=== PATIENT | male | born 1935 | race Two or more races ===

== ENCOUNTER 2023-04-11 09:20 | Emergency (ER) | payer OTHER ==
[~2023-04-11] VITALS: Ht 167.6 cm; Wt 72.7 kg
[~2023-04-11 09:20] MED LIST: ALPR0.254 PO; AMLO1TAB22 PO; ASPI1TAB19 PO; ATEN50TA PO; FINA5TAB4 PO; LOVA20TA4 PO; OMEP20CA74 PO; TRAM50TA2 PO
[2023-04-11 10:26] LABS: Alanine Aminotransferase 20 U/L (7-40); Albumin 3.3 g/dL (3.2-4.8); Alkaline Phosphatase 97 U/L (46-116); Anion Gap 5.8 (5-15); Aspartate Aminotransferase 15 U/L (13-40); BUN/Creatinine Ratio 13.3 (10.0-20.0); Blood Urea Nitrogen 13 mg/dL (9-23); Carbon Dioxide 26.2 mmol/L (20-30); Chloride 111 mmol/L (98-107); Glucose 118 mg/dL (74-106); Magnesium 1.9 mg/dL (1.6-2.6); Potassium 3.5 mmol/L (3.5-5.1); Sodium 143 mmol/L (136-145)
[2023-04-11 10:27] LABS: Bilirubin, Total 0.6 mg/dL (0.2-1.0); Total Protein 5.3 g/dL (5.7-8.2)
[2023-04-11 10:42] LABS: Basophils # (auto) 0.1 10 ^3/uL (0-0.2); Basophils % (auto) 0.9 % (0.0-2.0); Eosinophils # (auto) 0.2 10 ^3/uL (0-0.8); Eosinophils % (auto) 2.6 % (0.0-7.0); Hematocrit 38.8 % (41.0-53.0); Hemoglobin 12.8 g/dL (13.5-17.5); Lymphocytes # (auto) 0.9 10 ^3/uL (0.4-5.4); Lymphocytes % (auto) 14.3 % (10.0-50.0); Mean Corpuscular Hemoglobin 30.5 pg (28.0-32.0); Mean Corpuscular Hgb Conc. 32.9 g/dL (32.0-36.0); Mean Corpuscular Volume 92.7 fL (80.0-100.0); Monocytes # (auto) 0.4 10 ^3/uL (0-1.3); Monocytes % (auto) 6.8 % (0.0-12.0); Neutrophils # (auto) 4.6 10 ^3/uL (1.6-8.6); Neutrophils % (auto) 75.4 % (37.0-80.0); Red Blood Cells 4.18 10^6/uL (4.5-5.90); Red Cell Distribution Width 14.3 % (11.8-14.3); White Blood Cell 6.1 10^3/uL (4.4-10.8)
[2023-04-11 10:43] LABS: INR 1.19 (0.9-1.15); Partial Thromboplastin Time 29.9 SEC (24.5-34.5); Prothrombin Time 12.4 sec (9.3-11.8)
[2023-04-11 10:57] VITALS: TEMP 98.1
[2023-04-11 10:59] VITALS: RESP 15; O2SAT 98
[2023-04-11] MEDS ORDERED: hydrALAZINE HCL 20 MG/ML VL IV ONE (12:15)
[2023-04-11] MEDS ORDERED: IOHEXOL 350 MG/ML 100ML IJ ONE (12:31)
[2023-04-11 14:10] LABS: Urine Bacteria NONE SEEN /hpf (None Seen); Urine Blood Negative /uL (Negative); Urine Clarity Clear (Clear); Urine Color Colorless (Yellow); Urine Protein, UAD Negative (Negative); Urine Specific Gravity 1.022 (1.001-1.035); Urine Urobilinogen Normal (Negative); Urine WBC 1 /hpf (0 - 3); Urine pH 6.5 (5.0-8.0)
[2023-04-11 15:57] VITALS: BP 101/49; RESP 15; O2SAT 96
[2023-04-11 16:00] VITALS: PULSE 69
[2023-04-11] MEDS ORDERED: APIX2.5T PO (17:21)
[2023-04-11 18:02] LABS: LDL Cholesterol 55 mg/dL (< 100); Triglycerides 122 mg/dL (< 150)
[2023-04-11 18:03] LABS: HDL Cholesterol 41 mg/dL (40-59)
[2023-04-11 18:04] LABS: Cholesterol 107 mg/dL (< 200)
[2023-04-12] MEDS ORDERED: amLODIPine BESYLATE 5 MG TAB PO SCH (10:00)
[2023-04-12] MEDS ORDERED: ASPirin-EC 81 mg tab PO SCH (10:00)
[2023-04-12] MEDS ORDERED: ATENOLOL 50 MG TAB PO SCH (10:00)
[2023-04-14 08:07] LABS: Free Thyroxine Index 1.6 (1.2-4.9); Thyroxine (T4) 5.6 ug/dL (4.5-12.0)
== END 2023-04-11 17:01 | disposition home or self-care (01) ==
LOC: EDBD 09:20 → ER 09:20
DX: R07.89 Other chest pain (principal); J98.4 Other disorders of lung; E04.1 Nontoxic single thyroid nodule; I25.10 Atherosclerotic heart disease of native coronary artery without angina pectoris; I10 Essential (primary) hypertension; E78.5 Hyperlipidemia, unspecified; Z95.1 Presence of aortocoronary bypass graft; Z95.0 Presence of cardiac pacemaker; Z87.891 Personal history of nicotine dependence; Z79.82 Long term (current) use of aspirin; Z79.899 Other long term (current) drug therapy
CPT/HCPCS: 36415; 71045; 71275; 80053; 80061; 81001; 83036; 83735; 83880; 84443; 84484; 85025; 85610; 85730; 93005; 96374; 99285; J0360; Q9967